=== PATIENT | male | born 1985 | race Two or more races ===

== ENCOUNTER 2021-08-02 14:36 | Emergency (ER) | payer SELFPAY ==
[~2021-08-02] VITALS: Ht 160 cm; Wt 65.8 kg
[2021-08-02 15:25] VITALS: BP 133/83
== END 2021-08-02 16:31 | disposition home or self-care (01) ==
LOC: ER 14:36
DX: S61.012A Laceration without foreign body of left thumb without damage to nail, initial encounter (principal); W26.8XXA Contact with other sharp object(s), not elsewhere classified, initial encounter; Y93.89 Activity, other specified; Y92.89 Other specified places as the place of occurrence of the external cause; Y99.8 Other external cause status
CPT/HCPCS: 12002; 73140